=== PATIENT | female | born 1955 | race Caucasian/White ===

== ENCOUNTER 2017-06-09 12:25 | Inpatient (IN) ==
[2017-06-09] MEDS ORDERED: PANTOPRAZOLE 40 MG VIAL IV STA (13:12)
[2017-06-09] MEDS ORDERED: ONDANSETRON 4 MG/2 ML VIAL IV STA (13:12)
[2017-06-09] MEDS ORDERED: SODIUM CHLORIDE 0.9% 500 ML IV STA (13:12)
[2017-06-09] MEDS ORDERED: ONDANSETRON 4 MG/2 ML VIAL ONE (14:02)
[2017-06-09] MEDS ORDERED: PANTOPRAZOLE 40 MG VIAL IV ONE (14:02)
[2017-06-09 14:29] LABS: INR 1.1; PT Patient Result 11.5 SECS
[2017-06-09 14:30] LABS: Alanine Aminotransferase 13 U/L (13-56); Albumin 2.6 G/DL (3.4-5.0); Alkaline Phosphatase 86 U/L (45-117); Amylase 12 U/L (25-115); Aspartate Amino Transferase 6 U/L (0-37); Blood Urea Nitrogen 18 MG/DL (7-18); Calcium 8.2 MG/DL (8.5-10.1); Glucose 98 MG/DL (74-106); Magnesium 2.2 MG/DL (1.8-2.4); Osmolality,Calculated 280.4 MOS/KG (273-304); Potassium 3.2 MMOL/L (3.5-5.1); Sodium 140 MMOL/L (136-145); Total Protein 6.3 G/DL (6.4-8.3); Troponin I Only < 0.015 NG/ML (0.00-0.045)
[2017-06-09 14:31] LABS: Ammonia < 10 UMOL/L (11-32)
[2017-06-09] MEDS ORDERED: POTASSIUM CHLORIDE 20 MEQ TABLET PO STA (14:37)
[2017-06-09 14:42] LABS: Basophils % 0.8 % (0.0-0.8); Eosinophils # 0.3 10*3/uL (0.0-0.87); Eosinophils % 5.2 % (0.00-10.9); Hematocrit 31.5 VOL% (35.7-47.0); Immature Granulocytes % 0.2 %; Immature Granulocytes Absolute 0.01 #; Lymphocytes # 1.7 10*3/uL (1.4-4.0); Lymphocytes % 34.2 % (21.3-54.2); Mean Corpuscular Hemoglobin 20 PG (27-34); Mean Corpuscular Volume 72.6 FL (87-102); Mean Platelet Volume 11.6 FL (9.6-12.0); Monocytes # 0.3 10*3/uL (0.11-0.8); Neutrophils # 2.7 10*3/uL (1.4-7.4); Neutrophils % 54.6 % (38.7-73.9); Platelet Count 178 T/CUMM (130-400); Red Blood Count 4.34 MC/CUMM (3.8-5.5)
[2017-06-09 14:46] LABS: Hemoglobin 8.5 GM/DL (12.0-16.0)
[2017-06-09 15:17] LABS: Apearance,Urine Slightly Hazy (Clear); Bacteria,Urine Occasional /HPF (Few); Bilirubin,Urine Negative (Negative); Blood, Urine Negative (Negative); Glucose,Urine (UA) Negative (Negative); Ketones,Urine Negative (Negative); Mucus,Urine Many /LPF (Occasional); Nitrite,Urine Negative (Negative); Protein,Urine Negative; RBC,Urine 1 /HPF (0-4); Squamous Epithelial Cell,Urine Occasional /HPF (0-10); Urine Color Amber (Yellow); Urine Specific Gravity 1.024 (1.001-1.035); WBC,Urine 10 /HPF (0-6)
[2017-06-09] MEDS ORDERED: cefTRIAXone 1,000 MG in SODIUM CHLORIDE 0.9% 100 ML IV STA (15:22)
[2017-06-09 15:28] LABS: Barbiturates Screen,Urine Negative (Negative); Benzodiazepines Screen,Urine Negative (Negative); Cannabinoid Screen,Urine Negative (Negative); Opiate Screen,Urine Positive (Negative); Phencyclidine Screen,Urine Negative (Negative)
[2017-06-09] MEDS ORDERED: cefTRIAXone 1,000 MG VIAL ONE (15:32)
[2017-06-09] MEDS ORDERED: POTASSIUM CHLORIDE 20 MEQ TABLET PO ONE (15:32)
[2017-06-09] MEDS ORDERED: ONDANSETRON 4 MG/2 ML VIAL IV PRN (16:48)
[2017-06-09] MEDS ORDERED: DOCUSATE SODIUM 100 MG CAPSULE PO PRN (16:48)
[2017-06-09] MEDS ORDERED: ACETAMINOPHEN 325 MG TABLET PO PRN (16:48)
[2017-06-09] MEDS ORDERED: CYCLOBENZAPRINE 10 MG TABLET PO PRN (16:55)
[2017-06-09] MEDS: DEXTROSE 5% NACL 0.9% 1,000 ML IV SCH (17:28)
[2017-06-09] MEDS: PANTOPRAZOLE 40 MG VIAL IV SCH (20:28)
[2017-06-09] MEDS: ZALEPLON 5 MG CAPSULE PO PRN ×2 (20:34→22:33)
[2017-06-09] MEDS: PREGABALIN 75 MG CAPSULE PO SCH (20:34)
[2017-06-10] MEDS: DEXTROSE 5% NACL 0.9% 1,000 ML IV SCH ×4 (00:46→21:56)
[2017-06-10 06:38] LABS: Anisocytosis 1+; Microcytosis 2+
[2017-06-10 06:52] LABS: Basophils % 0.9 % (0.0-0.8); Eosinophils # 0.3 10*3/uL (0.0-0.87); Eosinophils % 8.6 % (0.00-10.9); Hematocrit 25.7 VOL% (35.7-47.0); Lymphocytes # 2.2 10*3/uL (1.4-4.0); Mean Corpuscular HGB Conc 27.2 GM/DL (32-36); Mean Corpuscular Hemoglobin 20 PG (27-34); Mean Corpuscular Volume 73.2 FL (87-102); Mean Platelet Volume 12.1 FL (9.6-12.0); Monocytes # 0.2 10*3/uL (0.11-0.8); Monocytes % 6.6 % (1.7-12.7); Neutrophils # 0.8 10*3/uL (1.4-7.4); Neutrophils % 21.9 % (38.7-73.9); Platelet Count 159 T/CUMM (130-400); Red Blood Count 3.51 MC/CUMM (3.8-5.5); Red Cell Distribution Width 19.1 % (9.3-17.3); White Blood Count 3.5 T/CUMM (4-12)
[2017-06-10 07:03] LABS: Calcium 7.4 MG/DL (8.5-10.1); Osmolality,Calculated 285.7 MOS/KG (273-304); Potassium 3.5 MMOL/L (3.5-5.1); Thyroid Stimulating Hormone 2.37 uIU/ml (0.358-3.74)
[2017-06-10] MEDS ORDERED: SODIUM CHLORIDE 0.9% 1,000 ML IV PRN (07:25)
[2017-06-10 07:46] LABS: Eosinophils 9 % (0-10); Hypochromasia 1+; Lymphocytes 62 % (20-55); Segmented Neutrophils 25 % (50-85); Total Cells Counted 100
[2017-06-10 07:47] LABS: Giant Platelets Few; Platelet Estimate Normal
[2017-06-10] MEDS: PANTOPRAZOLE 40 MG VIAL IV SCH ×2 (09:10→20:25)
[2017-06-10] MEDS: ESCITALOPRAM 10 MG TABLET PO SCH (09:10)
[2017-06-10] MEDS ORDERED: FUROSEMIDE 40 MG/4 ML VIAL IV ONE (12:46)
[2017-06-10] MEDS ORDERED: BISACODYL 5 MG TABLET PO ONE (15:37)
[2017-06-10] MEDS: PREGABALIN 75 MG CAPSULE PO SCH (20:28)
[2017-06-10] MEDS: ZALEPLON 5 MG CAPSULE PO PRN ×2 (20:28→21:56)
[2017-06-11] MEDS: DEXTROSE 5% NACL 0.9% 1,000 ML IV SCH ×4 (06:09→20:32)
[2017-06-11 06:30] LABS: Eosinophils # 0.3 10*3/uL (0.0-0.87); Hematocrit 34.6 VOL% (35.7-47.0); Lymphocytes # 2.3 10*3/uL (1.4-4.0); Lymphocytes % 56.3 % (21.3-54.2); Mean Corpuscular HGB Conc 28.9 GM/DL (32-36); Mean Corpuscular Hemoglobin 22 PG (27-34); Mean Corpuscular Volume 74.6 FL (87-102); Monocytes # 0.3 10*3/uL (0.11-0.8); Monocytes % 6.3 % (1.7-12.7); Neutrophils # 1.2 10*3/uL (1.4-7.4); Neutrophils % 28.4 % (38.7-73.9); Platelet Count 152 T/CUMM (130-400); Red Blood Count 4.64 MC/CUMM (3.8-5.5); Red Cell Distribution Width 20.1 % (9.3-17.3); White Blood Count 4.1 T/CUMM (4-12)
[2017-06-11 06:57] LABS: Calcium 7.7 MG/DL (8.5-10.1); Potassium 3.2 MMOL/L (3.5-5.1)
[2017-06-11 07:03] LABS: Giant Platelets Few; Hypochromasia 1+; Microcytosis 1+; Ovalocytes Slight; Platelet Estimate Normal
[2017-06-11] MEDS ORDERED: PROPOFOL 200 MG/20 ML VIAL IV ONE (09:00)
[2017-06-11] MEDS ORDERED: LIDOCAINE 2% 5 ML VIAL ONE (09:00)
[2017-06-11] MEDS: ESCITALOPRAM 10 MG TABLET PO SCH (09:37)
[2017-06-11] MEDS: POTASSIUM CHLORIDE 20 MEQ/15 ML UDCUP PO SCH ×2 (09:37)
[2017-06-11] MEDS: PANTOPRAZOLE 40 MG VIAL IV SCH ×2 (09:38→20:31)
[2017-06-11] MEDS: PREGABALIN 75 MG CAPSULE PO SCH (20:31)
[2017-06-11] MEDS: ZALEPLON 5 MG CAPSULE PO PRN ×2 (20:36→21:57)
[2017-06-12] MEDS: DEXTROSE 5% NACL 0.9% 1,000 ML IV SCH ×2 (01:46→09:01)
[2017-06-12 07:14] LABS: Basophils % 0.8 % (0.0-0.8); Eosinophils # 0.3 10*3/uL (0.0-0.87); Eosinophils % 8.8 % (0.00-10.9); Hemoglobin 9.4 GM/DL (12.0-16.0); Immature Granulocytes % 0.3 %; Immature Granulocytes Absolute 0.01 #; Lymphocytes # 1.9 10*3/uL (1.4-4.0); Lymphocytes % 50.1 % (21.3-54.2); Mean Corpuscular HGB Conc 29.4 GM/DL (32-36); Mean Corpuscular Hemoglobin 22 PG (27-34); Mean Corpuscular Volume 73.9 FL (87-102); Monocytes # 0.3 10*3/uL (0.11-0.8); Monocytes % 7.2 % (1.7-12.7); Neutrophils # 1.2 10*3/uL (1.4-7.4); Neutrophils % 32.8 % (38.7-73.9); Platelet Count 133 T/CUMM (130-400); Red Blood Count 4.33 MC/CUMM (3.8-5.5); Red Cell Distribution Width 20.2 % (9.3-17.3); White Blood Count 3.8 T/CUMM (4-12)
[2017-06-12 07:42] LABS: Calcium 7.2 MG/DL (8.5-10.1); Eosinophils 11 % (0-10); Hypochromasia 1+; Lymphocytes 46 % (20-55); Osmolality,Calculated 281.7 MOS/KG (273-304); Platelet Estimate Normal; Potassium 3.3 MMOL/L (3.5-5.1); Segmented Neutrophils 36 % (50-85); Total Cells Counted 100
[2017-06-12 07:43] LABS: Atypical Lymphocytes Few; Giant Platelets Few; Microcytosis Slight
[2017-06-12] MEDS: ESCITALOPRAM 10 MG TABLET PO SCH (08:34)
[2017-06-12] MEDS: PANTOPRAZOLE 40 MG VIAL IV SCH (08:34)
[2017-06-12] MEDS: POTASSIUM CHLORIDE 20 MEQ/15 ML UDCUP PO SCH ×2 (08:34→08:43)
[2017-06-12 09:49] VITALS: BP 104/57
== END 2017-06-12 11:35 | disposition home or self-care (01) | DRG 378 ==
LOC: N.ED 12:25 → N.EDINP 15:48 → N.5E 17:15